=== PATIENT | female | born 1975 | race Caucasian/White ===

== ENCOUNTER 2024-05-22 04:01 | Day surgery (SDC) | payer OTHER ==
[2024-05-17 15:19] VITALS: BMI 26.6
[~2024-05-22 04:01] MED LIST: ACETAMINOPHEN 325 MG TABLET (FP) PO PRN
[2024-05-22] MEDS ORDERED: TROPICAMIDE 1% OPHTH SOLN 15 ML BOTTLE ONE (07:03)
[2024-05-22] MEDS ORDERED: KETOROLAC TROMETHAMINE 0.5% EYE DROP 1 DROP DROPS ONE (07:03)
[2024-05-22] MEDS ORDERED: CYCLOPENTOLATE HCL 1% OPHTH SOLN 2 ML BOTTLE ONE (07:03)
[2024-05-22] MEDS ORDERED: PHENYLEPHRINE 2.5% OPTHALMIC DROP 2ML BOTTLE ONE (07:03)
[2024-05-22] MEDS ORDERED: OFLOXACIN 0.3% OPHTHALMIC SOLUTION 5 ML BOTTLE ONE (07:04)
[2024-05-22 07:14] VITALS: RESP 20
[2024-05-22] MEDS: CYCLOPENTOLATE HCL 1% OPHTH SOLN 2 ML BOTTLE OP SCH (07:35)
[2024-05-22] MEDS: KETOROLAC TROMETHAMINE 0.5% EYE DROP 1 DROP DROPS OP SCH (07:35)
[2024-05-22] MEDS: TROPICAMIDE 1% OPHTH SOLN 15 ML BOTTLE OP SCH (07:35)
[2024-05-22] MEDS: OFLOXACIN 0.3% OPHTHALMIC SOLUTION 5 ML BOTTLE OP SCH (07:36)
[2024-05-22] MEDS: PHENYLEPHRINE 2.5% OPHTH SOLN 15 ML BOTTLE OP SCH (07:36)
[2024-05-22] MEDS ORDERED: EPINEPHrine/PF 1 MG/1 ML (1:1,000) AMPULE ONE (07:40)
[2024-05-22] MEDS ORDERED: LIDOCAINE HCL/PF 2% SDV 5ML VIAL ONE (07:40)
[2024-05-22] MEDS ORDERED: LIDOCAINE HCL/PF 1% SDV 5ML VIAL ONE (07:40)
[2024-05-22] MEDS ORDERED: POVIDONE-IODINE 5% OPHTHALMIC PREP 30 ML SOLUTION ONE (07:41)
[2024-05-22] MEDS ORDERED: BUPIVACAINE HCL/PF 0.75% 10 ML VIAL ONE (07:41)
[2024-05-22] MEDS ORDERED: PROPOFOL 20 ML ONE (08:24)
[2024-05-22] MEDS: LIDOCAINE HCL/PF 2% SDV 5ML VIAL INF ONE (08:31)
[2024-05-22] MEDS: BUPIVACAINE HCL/PF 0.75% 10 ML VIAL RB ONE (08:31)
[2024-05-22] MEDS: POVIDONE-IODINE 5% OPHTHALMIC PREP 30 ML SOLUTION OD ONE (08:33)
[2024-05-22] MEDS: LIDOCAINE HCL 1% PRESERVATIVE FREE - 30ML VIAL IO ONE ×2 (08:40)
[2024-05-22] MEDS: CHONDROITIN SU A/HYALUR SOD 1 KIT IO ONE ×2 (08:41)
[2024-05-22] MEDS: BSS (NA/CA/MG/K) BALANCED SALT SOLUTION OPHTH SOLN 15 ML BOTTLE IO ONE ×2 (08:42)
[2024-05-22] MEDS: EPINEPHrine/PF 1 MG/1 ML (1:1,000) AMPULE IO ONE ×2 (08:47)
[2024-05-22 09:27] VITALS: PULSE 72; TEMP 98.6
[2024-05-22 11:32] VITALS: BP 130/80
== END 2024-05-22 10:10 | disposition home or self-care (01) ==
LOC: JASU-SURG 04:01
PROVIDERS: ATTEND Ophthalmology
PROC: 08RJ3JZ Replacement of Right Lens with Synthetic Substitute, Percutaneous Approach (ICD-10-PCS; principal; 2024-05-22 08:23)
DX: H26.9 Unspecified cataract (principal)
CPT/HCPCS: 66984; V2632; 81025